=== PATIENT | female | born 1970 | race Caucasian/White ===

== ENCOUNTER 2018-11-03 09:21 | Inpatient (IN) | payer MEDICAID ==
[~2018-11-03] VITALS: Ht 152.4 cm; Wt 54.0 kg
--- NOTE | 2018-11-03 09:30 | NUR ---
CAME IN TO ER FOR SEVERE RUQ PAIN 'I WOKE UP IN PAIN AT 3AM" , TO ER BED 9, HOOKED TO MONITOR, CHANGED TO GOWN, PROVIDED W WARM BLANKET, AWAITING MD ANDERSON. DAUGHTER AT BEDSIDE
--- NOTE | 2018-11-03 09:50 | NUR ---
BLOOD DRAWN AND SENT TO LAB.
--- NOTE | 2018-11-03 09:53 | NUR ---
DR DUKE AT BEDSIDE, RECEIVED VERBAL ORDER OF MORPHINE 4MG IV, ZOFRAN 4MG IV AND 1L OF NS. CARRIED OUT
[2018-11-03] MEDS ORDERED: ONDANSETRON HCL/PF 4 MG/2 ML VIAL ONE (09:54)
[2018-11-03] MEDS ORDERED: MORPHINE SULFATE INJ 4 MG/ML DISP.SYRIN ONE ×2 (09:54→13:01)
[2018-11-03] MEDS ORDERED: IV NS 0.9% 1,000 ML BAG IV ONE (10:00)
[2018-11-03] MEDS ORDERED: MORPHINE SULFATE INJ 2 MG/ML DISP.SYRIN IV ONE ×2 (10:00→13:00)
[2018-11-03] MEDS ORDERED: ONDANSETRON HCL/PF 4 MG/2 ML VIAL IVP ONE (10:00)
[2018-11-03 10:02] LABS: BASOPHILS % (AUTO) 0.4 % (0.0-2.0); EOSINOPHILS % (AUTO) 0.3 % (0.0-6.0); HEMATOCRIT 39 % (33-45); HEMOGLOBIN 13.5 g/dL (11.5-14.8); LYMPHOCYTES # (AUTO) 0.5 /CMM (0.8-4.8); MEAN CORPUSCULAR HGB CONC 35 g/dl (31.0-36.0); MEAN CORPUSCULAR VOLUME 85 fL (82-100); MONOCYTES # (AUTO) 0.3 /CMM (0.1-1.30); MONOCYTES % (AUTO) 3.9 % (2.0-12.0); NEUTROPHILS # (AUTO) 7.4 /CMM (1.8-8.9); NEUTROPHILS % (AUTO) 89.4 % (43.0-81.0); PLATELET COUNT (AUTO) 206 /CMM (150-450); RED BLOOD CELL COUNT(AUTO) 4.54 MIL/uL (4.0-5.2); WHITE BLOOD COUNT (AUTO) 8.3 K/uL (4.3-11.0)
[2018-11-03 10:03] LABS: APPEARANCE,URINE Clear (CLEAR); BILIRUBIN,URINE Negative (NEGATIVE); BLOOD, URINE Negative Ery/uL (NEGATIVE); COLOR,URINE Yellow (YELLOW); KETONES,URINE Negative (NEGATIVE); LEUKOCYTE ESTERASE ,URINE Negative (NEGATIVE); NITRITE, URINE Negative (NEGATIVE); PROTEIN,URINE Negative (NEGATIVE); UGLUCOSE Negative (NEGATIVE); UROBILINOGEN,URINE 0.2 EU/dL (0.2)
--- NOTE | 2018-11-03 10:12 | NUR ---
US TECH AT BEDSIDE.
[2018-11-03 10:28] LABS: ALBUMIN 3.9 g/dL (3.4-5.0); BILIRUBIN,DIRECT 0.1 mg/dL (0.0-0.2); BILIRUBIN,TOTAL 0.3 mg/dL (0.2-1.0); CALCIUM, SERUM 8.9 mg/dL (8.5-10.1); CREATININE 0.6 mg/dL (0.6-1.3); POTASSIUM 3.8 mmol/L (3.5-5.1); TOTAL PROTEIN, SERUM 7.7 g/dL (6.4-8.2)
--- NOTE | 2018-11-03 10:48 | NUR ---
PT STILL IN SEVERE RUQ PAIN, MADE MD AWARE, RECEIVED VERBAL ORDER OF TORADOL 30MG IV. CARRIED OUT.
[2018-11-03] MEDS ORDERED: KETOROLAC TROMETHAMINE INJ 30 MG/ML VIAL ONE (10:51)
[2018-11-03] MEDS ORDERED: KETOROLAC TROMETHAMINE INJ 30 MG/ML VIAL IV ONE (11:00)
[2018-11-03] MEDS ORDERED: CEFOTETAN DISODIUM 1 G in IV D5W 50 ML IV SCH (12:00)
[2018-11-03] MEDS ORDERED: LOVA20TA2 PO (12:37)
--- NOTE | 2018-11-03 12:46 | NUR ---
MD MADE AWARE THAT CEFOTETAN IS NOT AVAILABLE FROM PHARMACY. RECEIVED VERBAL ORDER OF CEFTRIAXONE 1GM IV. CARRIED OUT ORDER.
[2018-11-03] MEDS ORDERED: CEFTRIAXONE 1GM BAG (ER ONLY) 50 ML IV ONE (12:47)
--- NOTE | 2018-11-03 12:50 | NUR ---
STARTED ROCEPHIN 1GM IVPB LAC 20G END TIME: 1320
--- NOTE | 2018-11-03 12:53 | NUR ---
CALLED [employer] GLOVE FINISHER WAS PAGED.
--- NOTE | 2018-11-03 13:11 | NUR ---
KATHYA GONZALES AT BEDSIDE
[2018-11-03] MEDS ORDERED: CEFTRIAXONE 1 G in IV D5W 50 ML IV ONE (13:30)
--- NOTE | 2018-11-03 13:31 | NUR ---
REPORT GIVEN TO MS OLIVER SARABIA OF MED-SURG UNIT
[2018-11-03 14:00] VITALS: BP 139/80
[2018-11-03] MEDS ORDERED: ONDANSETRON HCL/PF 4 MG/2 ML VIAL IVP PRN (14:00)
[2018-11-03] MEDS ORDERED: Z GUARD REMEDY 2 OZ OINT TP PRN (14:00)
[2018-11-03] MEDS ORDERED: MORPHINE SULFATE INJ 2 MG/ML DISP.SYRIN IV PRN (14:00)
[2018-11-03] MEDS ORDERED: MAG HYDROX/AL HYDROX/SIMETH 30 ML UDC PO PRN (14:00)
[2018-11-03] MEDS ORDERED: ACETAMINOPHEN 325 MG TABLET PO PRN (14:00)
[2018-11-03] MEDS ORDERED: DEXTROSE 50%-WATER 50 ML DISP.SYRIN IV PRN (14:00)
[2018-11-03] MEDS ORDERED: ZOLPIDEM TARTRATE 5 MG TABLET PO PRN (14:00)
[2018-11-03] MEDS ORDERED: MAGNESIUM HYDROXIDE 30 ML UDC PO PRN (14:00)
--- NOTE | 2018-11-03 14:00 | NUR ---
TRANSFERRED BY EMT TO MED SURG UNIT VIA [facility]
[2018-11-03 14:25] VITALS: BP 139/80
--- NOTE | 2018-11-03 14:25 | NUR ---
MS CRUISE STAFF MEMBER NOTES PATIENT ADMITTED FROM ER REPORT GIVEN BY GUILLERMO WITH STABLE VITAL SIGNS. NO ACUTE DISTRESS NOTED. BREATHING UNLABORED. NO SOB NOTED. IV ACCESS PATENT AND INTACT, NO REDNESS OR SWELLING NOTED. ORIENTED TO THE ROOM. SAFETY MEASURES IN PLACE. CALL LIGHT WITHIN REACH. WILL CONTINUE TO MONITOR ACCORDINGLY.
[2018-11-03] MEDS: IV D5/0.45 NACL 1,000 ML IV PRN (14:34)
[2018-11-03 16:00] VITALS: BP 126/77
[2018-11-03] MEDS: BLOOD SUGAR DIAGNOSTIC 1 EACH STRIP IN SCH ×2 (18:30→23:23)
--- NOTE | 2018-11-03 18:55 | NUR ---
MS RN NOTES PATIENT FOR HIDA BY ROSANGELA IN STABLE CONDITION, NO ACUTE DISTRESS NOTED.
--- NOTE | 2018-11-03 19:00 | NUR ---
MS RN NOTES PATIENT NOT BACK ON THE FLOOR AT THIS TIME. ENDORSED TO NIGHT NURSE FOR CONTINUITY OF CARE.
--- NOTE | 2018-11-03 19:15 | NUR ---
RN INITIAL NOTES: RECEIVED REPORT FROM CRISTINA SARABIA, PT OFF THE UNIT CURRENTLY KRISTINE ARANAD. MET WITH FAMILY AT BED SIDE.
[2018-11-03 20:00] VITALS: BP 135/76
--- NOTE | 2018-11-03 20:21 | NUR ---
RN NOTES: PT BACK ON THE UNIT, VS TAKEN AND RECORDED, CONNECTED BACK TO IVF ORDERED. PER ROSANGELA TO KEEP PT NPO, DO NOT GIVE ANY MORPHINE, HE WILL NURSING PROJECT COORDINATOR THE PT AT 2230 FOR ANOTHER SCAN.
--- NOTE | 2018-11-03 20:22 | NUR ---
RN NOTES: IV ACCESS PATENT AND FLUSHING WELL, SAFETY PRECAUTIONS FOR FALL INITIATED, CALL LIGHT IN REACH, WILL CONTINUE MONITORING PT
[2018-11-03 21:00] VITALS: BP 135/76
[2018-11-03 23:00] VITALS: BP 130/77
--- NOTE | 2018-11-03 23:09 | NUR ---
PRN MORPHINE: PT C/O RUQ AND RLQ PAIN 04/19, JUST GOT BACK TO THE UNIT FROM HIDA SCAN #2, PER ROSANGELA OKAY TO GIVE MORPHINE NOW AND CAN EAT PER ORDER, PER KATHYA DENTON TO BE ON CLEAR LIQUID DIET, PRN MORPHINE 4MG IVP ADMINISTERED AT THIS TIME, PLACED ON 2L OXYGEN VIA NC RESPIRATION EVEN AND UNLABORED, WILL CONTINUE TO MONITOR AND REASSESS PT
--- NOTE | 2018-11-03 23:27 | NUR ---
ACCU CHECK: BLOOD SUGAR TEST PERFORMED AND RESULT IS 130, NO INSULIN COVERAGE GIVEN PER SLIDING SCALE, PT ON CLEAR LIQUID DIET, STATED SHE'S HUNGRY, GIVEN ICE WATER AND JELL O, INSTRUCTED PT TO EAT SLOWLY, NOTIFY IF ANY N/V OCCURS.
--- NOTE | 2018-11-04 02:56 | NUR ---
RN NOTES: SEEN SLEEPING AT THIS TIME, APPEARS CALM AND COMFORTABLE
[2018-11-04] MEDS: IV D5/0.45 NACL 1,000 ML IV PRN ×2 (03:40→17:53)
[2018-11-04] MEDS: MORPHINE SULFATE INJ 4 MG/ML DISP.SYRIN IV PRN ×3 (03:40→21:58)
--- NOTE | 2018-11-04 03:41 | NUR ---
PRN MORPHINE: PT C/O 04/19 RIGHT UPPER AND LOWER ABDOMINAL PAIN REQUESTING PAIN MEDS, PRN MORPHINE 4MG IVP ADMINISTERED AT THIS TIME, WILL CONTINUE TO MONITOR AND REASSESS PT
--- NOTE | 2018-11-04 04:20 | NUR ---
RN NOTES: RECEIVED CALL FROM [facility] REGARDING RESULT OF HIA SCAN. RESULTS FOLLOWS: 1. Positive hepatobiliary scan. There is lack of filling of the gallbladder. Findings may represent acute cholecystitis in the appropriate clinical setting. 2. Patent common bile duct with normal visualization of the small bowel. FOUR CORNER STAYER MACHINE OPERATOR DEIDRE/FOUR CORNER STAYER MACHINE OPERATOR OF DR SALEEM MADE AWARE
[2018-11-04] MEDS: BLOOD SUGAR DIAGNOSTIC 1 EACH STRIP IN SCH ×4 (05:34→23:00)
--- NOTE | 2018-11-04 05:34 | NUR ---
BS 114: BS 114 NO INSULIN COVERAGE GIVEN PER SLIDING SCALE
--- NOTE | 2018-11-04 06:28 | NUR ---
RN CLOSING NOTES: PT IN BED, SLEEPING, AROUSES TO TACTILE STIMULI, ON 2L OXYGEN VIA NC, RESPIRATION EVEN AND UNLABORED, APPEARS CALM AND COMFORTABLE, NO FACIAL GRIMACE NOTED. IV ACCESS REMAINS PATENT AND FLUSHING WELL, INFUSING WITH D5 1/2 NS AT 75ML/HR. VS REMAINS STABLE, NEEDS ATTENDED, SURGEON NOTIFIED OF HIDA SCAN RESULT, SAFETY PRECAUTIONS FOR FALL REMAINS ENGAGED, CALL LIGHT IN REACH, WILL ENDORSE TO DAY RN FOR CONTINUITY OF CARE.
[2018-11-04 06:35] LABS: BASOPHILS % (AUTO) 0.3 % (0.0-2.0); EOSINOPHILS % (AUTO) 0.2 % (0.0-6.0); HEMATOCRIT 35 % (33-45); HEMOGLOBIN 12.3 g/dL (11.5-14.8); LYMPHOCYTES # (AUTO) 0.7 /CMM (0.8-4.8); MEAN CORPUSCULAR HGB CONC 35 g/dl (31.0-36.0); MEAN CORPUSCULAR VOLUME 85 fL (82-100); MONOCYTES # (AUTO) 0.7 /CMM (0.1-1.30); MONOCYTES % (AUTO) 9.1 % (2.0-12.0); NEUTROPHILS # (AUTO) 6.2 /CMM (1.8-8.9); NEUTROPHILS % (AUTO) 81.4 % (43.0-81.0); PLATELET COUNT (AUTO) 206 /CMM (150-450); RED BLOOD CELL COUNT(AUTO) 4.15 MIL/uL (4.0-5.2); WHITE BLOOD COUNT (AUTO) 7.7 K/uL (4.3-11.0)
[2018-11-04 06:58] LABS: ALBUMIN 3.1 g/dL (3.4-5.0); BILIRUBIN,TOTAL 0.6 mg/dL (0.2-1.0); CALCIUM, SERUM 7.9 mg/dL (8.5-10.1); CREATININE 0.6 mg/dL (0.6-1.3); MAGNESIUM 1.8 mg/dL (1.8-2.4); PHOSPHORUS 2.6 mg/dL (2.5-4.9); POTASSIUM 3.4 mmol/L (3.5-5.1); THYROID STIMULATING HORMONE 1.076 uIU/mL (0.358-3.74); TOTAL PROTEIN, SERUM 6.6 g/dL (6.4-8.2)
--- NOTE | 2018-11-04 07:01 | NUR ---
RN NOTES: RECEIVED ORDER FROM DEIDRE RASHEED, PER DIRECTOR OF HOME CARE HOSPICE "PLEASE HAVE THEM OBTAIN DELAYED DELAYED IMAGES UP TO 24HRS". CONTACTED [facility] [phone], RELAYED DOCTORS ORDER, PER EBEN HE'S GOING TO COME TO DO IMAGING.
--- NOTE | 2018-11-04 07:06 | NUR ---
MS RN NOTES PATIENT IN BED ALERT ORIENTED X 4. NO ACUTE DISTRESS NOTED. BREATHING UNLABORED. NO SOB NOTED. IV ACCESS PATENT AND INTACT, NO REDNESS OR SWELLING NOTED. SAFETY MEASURES IN PLACE. CALL LIGHT WITHIN REACH. WILL CONTINUE TO MONITOR ACCORDINGLY.
--- NOTE | 2018-11-04 07:06 | NUR ---
MS RN NOTES PATIENT IN BED ALERT ORIENTED X 4. NO ACUTE DISTRESS NOTED. BREATHING UNLABORED. NO SOB NOTED. IV ACCESS PATENT AND INTACT, NO REDNESS OR SWELLING NOTED. DUE MEDICATIONS GIVEN, NO ASE NOTED. NEEDS ATTENDED AND ANTICIPATED. KEPT CLEAN DRY AND COMFORTABLE. SAFETY MEASURES IN PLACE. CALL LIGHT WITHIN REACH. ENDORSED TO NIGHT NURSE FOR CONTINUITY OF CARE. Addendum: 11/04/18 at 1930 by CRISTINA RIDLEY RN DISREGARD ABOVE NOTED WRONG CHART
--- NOTE | 2018-11-04 07:12 | NUR ---
RN NOTES: PER SUPERVISOR SLASHING DEPARTMENT DEIDRE T/O BACK TO NPO, READ BACK AND VERIFIED
[2018-11-04 08:00] VITALS: BP 120/67
[2018-11-04] MEDS: PANTOPRAZOLE 40 MG VIAL IV SCH (09:19)
--- NOTE | 2018-11-04 09:30 | NUR ---
MS RN NOTES PATIENT TRANSPORTED FOR HIDA DELAYED IMAGING BY [facility] IN STABLE CONDITION.
[2018-11-04] MEDS: ATORVASTATIN 10 MG TABLET PO SCH (09:59)
--- NOTE | 2018-11-04 10:25 | NUR ---
MS RN NOTES SEEN AND EVALUATED BY REWORK MACHINE OPERATOR GEORGE GONZALES WITH ORDERS FOR DILAUDID 0.5MG IV Q6H PRN FOR BREAKTHROUGH PAIN, NOTED AND CARRIED OUT.
[2018-11-04] MEDS: POTASSIUM CL. PREMIX PERIPHER. 50 ML IV SCH ×2 (10:29→11:30)
[2018-11-04] MEDS ORDERED: HYDROMORPHONE INJ 0.5 MG/0.5 ML SYRINGE IV PRN (10:30)
--- NOTE | 2018-11-04 10:30 | NUR ---
MS RN NOTES PATIENT WAS [facility]SP[facility] IN STABLE CONDITION.
[2018-11-04] MEDS: CEFTRIAXONE 1 G in IV D5W 50 ML IV SCH (13:50)
--- NOTE | 2018-11-04 14:30 | NUR ---
MS RN NOTE HIDA SCAN RESULTED NOTIFIED LEONIE WAGGONER, NO NEW ORDERS MADE AT THIS TIME. CLARIFIED SURGERY SCHEDULE AND DIET ORDERS WITH ORDERS TO KEEP PATIENT CURRENT DIET NPO, NO SURGERY SCHEDULE YET AT THIS TIME.
--- NOTE | 2018-11-04 15:44 | NUR ---
MS RN NOTES RECEIVED NEW ORDERS FROM GEORGE MCKINNEY WITH ORDERS TO DISCONTINUE DILAUDID, NOTED AND CARRIED OUT.
[2018-11-04 16:00] VITALS: BP 102/58
--- NOTE | 2018-11-04 19:00 | NUR ---
MS RN NOTES PATIENT IN BED ALERT ORIENTED X 4. NO ACUTE DISTRESS NOTED. BREATHING UNLABORED. NO SOB NOTED. IV ACCESS PATENT AND INTACT, NO REDNESS OR SWELLING NOTED. DENIED ANY PAIN AT THIS TIME. DUE MEDICATIONS GIVEN, NO ASE NOTED. NEEDS ATTENDED AND ANTICIPATED. KEPT CLEAN DRY AND COMFORTABLE. SAFETY MEASURES IN PLACE. CALL LIGHT WITHIN REACH. ENDORSED TO NIGHT NURSE FOR CONTINUITY OF CARE.
--- NOTE | 2018-11-04 19:05 | NUR ---
RN INITIAL NOTES: Received report from Brian SARABIA. Pt sitting on a chair, family at bed side, pt on 2l oxygen via nc, respiration even and unlabored, remind pt she is npo, nothing to eat or drink, iv access patent and flushing well, infusing with ivf as ordered, no s/s of infiltration and swelling noted on access site. complaining she's hungry. pt kept npo per surgeon dr ramírez, will have surgery on Tuesday, pt aware. Safety precautions for fall initiated, call light in reach, will continue to monitor .
[2018-11-04 20:00] VITALS: BP 110/54
[2018-11-04 21:45] VITALS: BP 126/80
--- NOTE | 2018-11-04 21:59 | NUR ---
PRN MORPHINE: PT C/O 04/19 RIGHT UPPER AND LOWER QUADRANT PAIN, REQUESTING FOR PAIN MEDICATION, PRN MORPHINE 4MG IVP ADMINISTERED AT THIS TIME, WILL CONTINUE TO MONITOR AND REASSESS PT
--- NOTE | 2018-11-04 23:00 | NUR ---
BLOOD SUGAR 111: BS 111, NO INSULIN COVERAGE GIVEN PER SLIDING SCALE, ON D5 1/2 NS AT 75ML/HR, WILL MONITOR FOR S/S OF HYPOGLYCEMIA
--- NOTE | 2018-11-04 23:36 | NUR ---
RN NOTES: SEEN BY SURGEON DR SALEEM, INFORMED PT ABOUT SURGERY , GALLBLADDER REMOVAL, MAYBE TOMORROW IF NOT DEFINITELY TUESDAY, SURGEON EXPLAINED TO PT ABOUT SURGERY, POSSIBLE RISK RELATED TO SURGERY, PT AGREE TO THE PROCEDURE.
[2018-11-05 03:00] VITALS: BP 117/76
[2018-11-05] MEDS: MORPHINE SULFATE INJ 4 MG/ML DISP.SYRIN IV PRN (03:15)
--- NOTE | 2018-11-05 03:16 | NUR ---
PRN MORPHINE: PT C/O ABDOMINAL PAIN (RUQ, AND RLQ) WITH HEAD ACHE, 04/19 REQUESTING FOR MORPHINE, PRN MORPHINE 4MG IVP ADMINISTERED AT THIS TIME, WILL CONTINUE TO MONITOR AND REASSESS
[2018-11-05] MEDS: BLOOD SUGAR DIAGNOSTIC 1 EACH STRIP IN SCH ×4 (05:22→23:04)
[2018-11-05] MEDS: IV D5/0.45 NACL 1,000 ML IV PRN ×2 (05:22→22:38)
--- NOTE | 2018-11-05 06:55 | NUR ---
RN CLOSING NOTES: PT SLEEPING, APPEARS COMFORTABLE, NO FACIAL GRIMACE NOTED AT THIS TIME. IV ACCESS REMAINS PATENT AND FLUSHING WELL, INFUSING WITH D5 1/2 NS AT 75ML/HR. REMAINS NPO PER SURGEON. VS REMAINS STABLE,NEEDS ATTENDED, REMAINS ON OXYGEN. SAFETY PRECAUTIONS REMAINS ENGAGED, SIDE RAILS UP X2 FOR SAFETY. CALL LIGHT IN REACH, WILL ENDORSE TO DAY RN FOR CONTINUITY OF CARE.
--- NOTE | 2018-11-05 07:15 | NUR ---
MS RN NOTES PATIENT IN BED EYES CLOSED , EASY TO AROUSE, RESPOND TO VERBAL AND TACTILE STIMULI. NO ACUTE DISTRESS NOTED, BREATHING UNLABORED. NO SOB NOTED.NO FACIAL GRIMACING NOTED. IV ACCESS PATENT AND INTACT, NO REDNESS OR SWELLING NOTED. SAFETY MEASURES IN PLACE, CALL LIGHT WITHIN REACH. WILL CONTINUE TO MONITOR ACCORDINGLY.
[2018-11-05 07:30] LABS: BASOPHILS % (AUTO) 0.7 % (0.0-2.0); EOSINOPHILS % (AUTO) 2.1 % (0.0-6.0); HEMATOCRIT 33 % (33-45); HEMOGLOBIN 11.7 g/dL (11.5-14.8); LYMPHOCYTES # (AUTO) 0.7 /CMM (0.8-4.8); LYMPHOCYTES % (AUTO) 17.9 % (20.0-44.0); MEAN CORPUSCULAR HGB CONC 35 g/dl (31.0-36.0); MEAN CORPUSCULAR VOLUME 85 fL (82-100); MONOCYTES # (AUTO) 0.4 /CMM (0.1-1.30); MONOCYTES % (AUTO) 10.3 % (2.0-12.0); NEUTROPHILS # (AUTO) 2.7 /CMM (1.8-8.9); PLATELET COUNT (AUTO) 191 /CMM (150-450); RED BLOOD CELL COUNT(AUTO) 3.88 MIL/uL (4.0-5.2); WHITE BLOOD COUNT (AUTO) 3.9 K/uL (4.3-11.0)
[2018-11-05 08:00] VITALS: BP 94/49
[2018-11-05 08:37] LABS: CALCIUM, SERUM 8.2 mg/dL (8.5-10.1); CREATININE 0.5 mg/dL (0.6-1.3); POTASSIUM 3.7 mmol/L (3.5-5.1)
[2018-11-05] MEDS: ATORVASTATIN 10 MG TABLET PO SCH (09:00)
[2018-11-05] MEDS: PANTOPRAZOLE 40 MG VIAL IV SCH (09:03)
[2018-11-05] MEDS: MORPHINE SULFATE INJ 10 MG/ML DISP.SYRIN IV PRN ×3 (11:45→22:38)
[2018-11-05] MEDS: CEFTRIAXONE 1 G in IV D5W 50 ML IV SCH (13:34)
[2018-11-05 16:00] VITALS: BP 109/66
--- NOTE | 2018-11-05 19:00 | NUR ---
MS RN NOTES PATIENT IN BED ALERT ORIENTED X 4. NO ACUTE DISTRESS NOTED, BREATHING UNLABORED. NO SOB NOTED. IV ACCESS PATENT AND INTACT, NO REDNESS OR SWELLING NOTED.DUE MEDICATIONS GIVEN, NO ASE NOTED. KEPT CLEAN DRY AND COMFORTABLE. SAFETY MEASURES IN PLACE, CALL LIGHT WITHIN REACH. WILL ENDORSE TONIGHT NURSE FOR CONTINUITY OF CARE.
--- NOTE | 2018-11-05 19:05 | NUR ---
RN INITIAL NOTES: Received report from Susanna SARABIA. Pt in bed, met with family at bed side, pt on 2l oxygen via nc, respiration even and unlabored, on npo/nothing to eat or drink, iv access patent and flushing well, infusing with ivf as ordered, no s/s of infiltration and swelling noted on access site. will have surgery on Tuesday, pt aware. Had shower today. Safety precautions for fall initiated, call light in reach, will continue to monitor .
[2018-11-05 20:00] VITALS: BP 128/75
--- NOTE | 2018-11-05 22:39 | NUR ---
PRN MORPHINE: PT C/O 04/19 RIGHT UPPER AND LOWER QUADRANT PAIN REQUESTING FOR PAIN MEDICATION, PRN MORPHINE 5MG IVP ADMINISTERED TO THE PT AT THIS TIME, WILL CONTINUE TO MONITOR AND REASSESS PT
--- NOTE | 2018-11-05 23:00 | NUR ---
rn notes: pt giving full consent for gall bladder removal, consent for procedure, anesthesia and blood obtained.
--- NOTE | 2018-11-05 23:04 | NUR ---
ACCU CHECK 106: BLOOD SUGAR TEST PERFORMED RESULT OBTAINED IS 106, NO INSULIN GIVEBN PER SLIDING SCALE, PT ON D5 1/2 NS AT 75ML/HR
[2018-11-06] VITALS (10 sets, daily range): BP systolic 105–141; BP diastolic 61–80
[2018-11-06] MEDS: MORPHINE SULFATE INJ 10 MG/ML DISP.SYRIN IV PRN ×5 (03:43→23:44)
--- NOTE | 2018-11-06 04:30 | NUR ---
PRN MORPHINE: 0343AM PT C/O ABDOMINAL PAIN (RUQ, RLQ), 04/19 REQUESTING FOR MORPHINE, NOTED IV ACCESS SWOLLEN, REMOVED IV APPLIED PRESSURED DRESSING, REINSERTED IV ON RFA USING G 20, GOOD BLOOD RETURN NOTED, HOWEVER PT COMPLAINING THAT IT HURTS WHEN BEING FLUSH WITH SALINE. DECIDED TO REMOVED THE SAID ACCESS,RESTART NEW IV ACCESS ON LEFT WRIST USING G 22, GOOD BLOOD RETURN NOTED. THIS TIME, PT DENIES ANY BURNING SENSATION OR C/O STING WHEN BEING FLUSH WITH SALINE. 0430AM PRN MORPHINE 5MG IVP ADMINISTERED AT THIS TIME, WILL CONTINUE TO MONITOR AND REASSESS PT, CONNECTED BACK TO IVF ORDERED.
[2018-11-06] MEDS: BLOOD SUGAR DIAGNOSTIC 1 EACH STRIP IN SCH ×4 (05:46→23:40)
--- NOTE | 2018-11-06 05:47 | NUR ---
BLOOD SUGAR 104: BLOOD SUGAR RESULT 104, NO INSULIN COVERAGE GIVEN PER SLIDING SCALE.
[2018-11-06 06:32] LABS: BASOPHILS % (AUTO) 0.8 % (0.0-2.0); EOSINOPHILS % (AUTO) 2.6 % (0.0-6.0); HEMATOCRIT 33 % (33-45); HEMOGLOBIN 11.6 g/dL (11.5-14.8); LYMPHOCYTES # (AUTO) 0.6 /CMM (0.8-4.8); LYMPHOCYTES % (AUTO) 12.4 % (20.0-44.0); MEAN CORPUSCULAR HGB CONC 35 g/dl (31.0-36.0); MEAN CORPUSCULAR VOLUME 84 fL (82-100); MONOCYTES # (AUTO) 0.4 /CMM (0.1-1.30); MONOCYTES % (AUTO) 7.9 % (2.0-12.0); NEUTROPHILS # (AUTO) 3.5 /CMM (1.8-8.9); NEUTROPHILS % (AUTO) 76.3 % (43.0-81.0); PLATELET COUNT (AUTO) 215 /CMM (150-450); RED BLOOD CELL COUNT(AUTO) 3.89 MIL/uL (4.0-5.2); WHITE BLOOD COUNT (AUTO) 4.6 K/uL (4.3-11.0)
[2018-11-06 06:36] LABS: CALCIUM, SERUM 8.4 mg/dL (8.5-10.1); CREATININE 0.5 mg/dL (0.6-1.3); POTASSIUM 3.5 mmol/L (3.5-5.1)
--- NOTE | 2018-11-06 06:43 | NUR ---
RN CLOSING NOTES: PT SLEEPING, NO FACIAL GRIMACE NOTED AT THIS TIME. IV ACCESS REMAINS PATENT AND FLUSHING WELL, INFUSING WITH D5 1/2 NS AT 75ML/HR. REMAINS NPO FOR SURGERY, CONSENT FOR PROCEDURE, ANESTHESIA AND BLOOD SECURED. CHECKLIST COMPLETED. VS REMAINS STABLE,NEEDS ATTENDED, REMAINS ON OXYGEN. SAFETY PRECAUTIONS REMAINS ENGAGED, SIDE RAILS UP X2 FOR SAFETY. CALL LIGHT IN REACH, WILL ENDORSE TO DAY RN FOR CONTINUITY OF CARE.
--- NOTE | 2018-11-06 07:30 | NUR ---
MS/RN Patient received Patient received from bowling ball mold assembler. Pain scale currently 9/10, next medication due 0840, patient aware. IV fluids infusing at 75ml/hr, no signs of infiltration seen. NPO for possible surgery today with Dr Dow. Will continue to monitor and update patient as to surgery time.
[2018-11-06] MEDS: ATORVASTATIN 10 MG TABLET PO SCH (08:16)
[2018-11-06] MEDS: PANTOPRAZOLE 40 MG VIAL IV SCH (08:37)
--- NOTE | 2018-11-06 08:42 | NUR ---
MS/structural steel ironworker Complaining of abdominal pain 03/20. Morphine 5mg administered as ordered. Will monitor effectiveness.
--- NOTE | 2018-11-06 11:13 | NUR ---
MS/RN S/B Lenny OFFSET PRESS ASSISTANT Seen by OFFSET PRESS ASSISTANT - continue with current plan of care, await surgery schedule from Dr Dow.
--- NOTE | 2018-11-06 12:00 | NUR ---
MS/RN Blood sugar Blood sugar 107.
[2018-11-06] MEDS: CEFTRIAXONE 1 G in IV D5W 50 ML IV SCH (12:07)
[2018-11-06] MEDS: IV D5/0.45 NACL 1,000 ML IV PRN (12:07)
--- NOTE | 2018-11-06 12:35 | NUR ---
MS/phototypesetter operator schedule Per Dr Dow, surgery scheduled for 4p. Patient updated as to plan of care.
[2018-11-06] MEDS ORDERED: ANESTHESIA TRAY IN PYXIS 1 EA TRAY MC ONE (13:36)
--- NOTE | 2018-11-06 14:30 | NUR ---
MS/appliance service technician Patient taken to operating room, chart with patient.
[2018-11-06] MEDS ORDERED: LIDOCAINE 1%-EPI 1:100,000 20 ML VIAL ONE (14:49)
[2018-11-06] MEDS ORDERED: BUPIVACAINE 0.5 % PF 150 MG/30 ML VIAL ONE (14:49)
[2018-11-06] MEDS ORDERED: MIDAZOLAM HCL 2 MG/2ML VIAL ONE (15:02)
[2018-11-06] MEDS ORDERED: FENTANYL PF 250MCG/5ML AMPUL ONE (15:02)
[2018-11-06] MEDS ORDERED: FAMOTIDINE/PF INJ 20 MG/2 ML VIAL IV ONE (15:03)
[2018-11-06] MEDS ORDERED: ROCURONIUM BROMIDE 50 MG/5 ML ONE (15:03)
[2018-11-06] MEDS ORDERED: FENTANYL PF 100MCG/2ML AMPUL ONE (16:37)
--- NOTE | 2018-11-06 17:15 | NUR ---
MS/RN Back to room Patient back in room following laparoscopic cholecystectomy by Dr Dow. Lap sites X open to air with closure by dermabond. All pre op orders resumed including IVF and pain medication. Last pain medication administered in recovery room at 1640 (fentanyl 20mcg). Instructed to use incentive spirometer ten times every hour while awake, SCD stockings in place. Vital signs within normal range, no fever noted. Call light within reach, will continue to monitor and ensure safety.
--- NOTE | 2018-11-06 18:18 | NUR ---
MS/RN End note Patient remains in stable condition. Vital signs recorded as per hospital protocol for post surgery patients. Pain well controlled at this time, made aware that pain medication is available if needed. IV fluids infusing as ordered. Started with clear liquids, encouraged to go slowly to start. All needs attended, time allowed for all questions and concerns to be addressed. Will endorse to social media sr strategy manager.
--- NOTE | 2018-11-06 19:20 | NUR ---
MS RN OPENING NOTES: RECEIVED PT ON 2LPM VIA NC AND IS TOLERATING WELL. 2 FAMILY MEMBERS AT BEDSIDE. PT IS SITTING UP AND HAVING DINNER AT THIS TIME. NO SOB NOTED. NO S/S OF DISTRESS. INCENTIVE SPIROMETER AT BEDSIDE. INFORMED PT TO USE IT WHILE AWAKE AND PT UNDERSTOOD. PT HAS IV AND IS BEING INFUSED WITH IV D51/2NS AT 75ML/HR. BILATERAL SCD PUMPS IN PLACE. BED KEPT IN LOW, LOCKED POSITION, AND SIDE RAILS X 2UP. WILL CONTINUE TO MONITOR PT.
--- NOTE | 2018-11-06 19:50 | NUR ---
MS RN NOTES: PT COMPLAINING OF L AND R ABDOMEN PAIN 10/10. PT WAS ADMINISTERED MORPHINE 5MG IV. WILL CONTINUE TO MONITOR.
--- NOTE | 2018-11-06 23:45 | NUR ---
MS RN NOTES: PT COMPLAINING OF 10/10 ABDOMINAL PAIN. PT WAS ADMINISTERED MORPHINE 5MG IV. WILL CONTINUE TO MONITOR.
[2018-11-07] MEDS: INSULIN REGULAR, HUMAN 100 UNIT/ML 3 ML VIAL SQ PRN ×2 (00:04→05:15)
--- NOTE | 2018-11-07 00:05 | NUR ---
MS RN NOTES: BLOOD SUGAR WAS 175. UPON PREPARING THE INSULIN, PT SAID SHE IS NOT DIABETIC. HGA1C IS WITHIN RANGE. PT REFUSED INSULIN WELL. WILL CONTINUE TO MONITOR.
[2018-11-07 03:35] VITALS: BP 131/71
[2018-11-07] MEDS: MORPHINE SULFATE INJ 10 MG/ML DISP.SYRIN IV PRN ×2 (03:44→08:45)
--- NOTE | 2018-11-07 03:48 | NUR ---
MS RN NOTES: PT COMPLAINING OF 10/10 ABDOMINAL AND R SHOULDER PAIN. PT WAS ADMINISTERED MORPHINE 5MG IV. WILL CONTINUE TO MONITOR.
[2018-11-07] MEDS: BLOOD SUGAR DIAGNOSTIC 1 EACH STRIP IN SCH (05:15)
[2018-11-07 06:25] LABS: BASOPHILS % (AUTO) 0.2 % (0.0-2.0); HEMATOCRIT 35 % (33-45); HEMOGLOBIN 12.5 g/dL (11.5-14.8); LYMPHOCYTES # (AUTO) 0.4 /CMM (0.8-4.8); LYMPHOCYTES % (AUTO) 8.9 % (20.0-44.0); MEAN CORPUSCULAR HGB CONC 36 g/dl (31.0-36.0); MEAN CORPUSCULAR VOLUME 84 fL (82-100); MONOCYTES # (AUTO) 0.2 /CMM (0.1-1.30); MONOCYTES % (AUTO) 4.8 % (2.0-12.0); NEUTROPHILS # (AUTO) 3.4 /CMM (1.8-8.9); NEUTROPHILS % (AUTO) 86.1 % (43.0-81.0); PLATELET COUNT (AUTO) 247 /CMM (150-450); RED BLOOD CELL COUNT(AUTO) 4.16 MIL/uL (4.0-5.2)
--- NOTE | 2018-11-07 06:25 | NUR ---
MS RN CLOSING NOTES: ALL NEEDS WERE ATTENDED AND ANTICIPATED FOR. PT KEPT CLEAN, DRY, AND COMFORTABLE. PT REMAINS ON 2LPM VIA NC AND IS TOLERATING WELL. NO SOB NOTED. NO S/S OF DISTRESS. PT HAS BILATERAL SCD PUMPS IN PLACE. PT HAS IV AND IS BEING INFUSED WITH IV D5 1/2 NS AT 75ML/HR. BED KEPT IN LOW, LOCKED POSITION, AND SIDE RAILS X 2UP. PT HAS INCENTIVE SPIROMETER AT BEDSIDE. PT UNDERSTANDS TO USE IT WHEN AWAKE. WILL ENDORSE TO AM NURSE FOR FRANCOIS.
[2018-11-07 06:47] LABS: BILIRUBIN,TOTAL 0.4 mg/dL (0.2-1.0); CALCIUM, SERUM 8.8 mg/dL (8.5-10.1); CREATININE 0.6 mg/dL (0.6-1.3); POTASSIUM 3.9 mmol/L (3.5-5.1); TOTAL PROTEIN, SERUM 7.1 g/dL (6.4-8.2)
--- NOTE | 2018-11-07 07:20 | NUR ---
RN NOTES PATIENT A/OX4, AMBULATES INDEPENDENTLY, DENIES PAIN AT THIS TIME, TOLERATING CURRENT DIET PER ENDORSEMENT, NEEDS ATTENDED, CALL LIGHT WITHIN REACH, WILL CONTINUE TO MONITOR.
[2018-11-07 08:00] VITALS: BP 121/75
[2018-11-07] MEDS: ATORVASTATIN 10 MG TABLET PO SCH (08:21)
[2018-11-07] MEDS: PANTOPRAZOLE 40 MG VIAL IV SCH (08:21)
[2018-11-07] MEDS: IV D5/0.45 NACL 1,000 ML IV PRN (08:52)
[2018-11-07] MEDS ORDERED: IBUPROFEN 600 MG TABLET PO PRN (10:00)
--- NOTE | 2018-11-07 12:19 | NUR ---
RN NOTES CALLED DR. SALEEM AND ASKED IF PATIENT IS CLEARED FOR DISCHARGE, INFORMED DR. SALEEM OF LAB RESULT AND VITAL SIGNS. PER DR. SALEEM, PATIENT CAN GO, FOLLOW UP WITH SURGEON X2 WEEKS, AND NO HEAVY LIFTING X 2 WEEKS.
--- NOTE | 2018-11-07 12:56 | NUR ---
ALARM SIGNAL OPERATOR PATIENT A/OX4, NO DISTRESS NOTED, DENIES ABDOMINAL PAIN OR DISCOMFORT, NO BLEEDING ON SURGICAL SITES, SKIN CLEAR AND INTACT. AT BEDSIDE, ENCOURAGED PATIENT TO AMBULATE MORE AT HOME, DISCHARGE INSTRUCTIONS PROVIDED AND VERBALIZED UNDERSTANDING. INSTRUCTED TO FOLLOW UP WITH DR. SALEEM IN 2 WEEKS, PHONE NUMBER ATTACHED. RX PROVIDED FOR IBUPROFEN AND PO ANTIBIOTIC. PIV REMOVED, BELONGINGS RECONCILED AND COMPLETE. DC PAPERWORKS SIGNED. PATIENT LEFT THE FACILITY IN STABLE CONDITION.
== END 2018-11-07 13:00 | disposition home or self-care (01) | DRG 263 ==
LOC: ER 09:27 → MEDSG2 13:28
PROVIDERS: ADMIT Nurse Practitioner Acute Care; ATTEND Internal Medicine
PROC: 0FT44ZZ Resection of Gallbladder, Percutaneous Endoscopic Approach (ICD-10-PCS; principal; 2018-11-06)
DX: K80.00 Calculus of gallbladder with acute cholecystitis without obstruction (principal); E78.5 Hyperlipidemia, unspecified; E87.6 Hypokalemia; R73.9 Hyperglycemia, unspecified
CPT/HCPCS: 36415; 71045-TC; 76700-TC; 78226; 80048-TC; 80053-TC; 80061-TC; 80076-TC; 81000-TC; 82962-TC; 83690-TC; 83735-TC; 84100-TC; 84443-TC; 84703-TC; 85025-TC; 85610-TC; 86850-TC; 87081-TC; 88304-TC; 94799-TC; A9537; C9113; G0378; J0690; J0696; J1815; J1885; J2250; J2270; J2405; J2704; J2765; J3010; J3480; J3490; J7030; J7060

== ENCOUNTER 2019-02-27 16:42 | Emergency (ER) | payer MEDICAID ==
[~2019-02-27] VITALS: Ht 152.4 cm; Wt 48.5 kg
[~2019-02-27 16:42] MED LIST: LOVA20TA2 PO
[2019-02-27 16:49] VITALS: BP 116/70
[2019-02-27] MEDS ORDERED: AMOX/CLAVULANATE 875 MG TABLET PO ONE (17:00)
[2019-02-27] MEDS ORDERED: BACI/NEOM/POLY B OINT PKT 1 UDPKT PACKET TP ONE (17:00)
[2019-02-27] MEDS ORDERED: AMOX/CLAVULANATE 875 MG TABLET ONE (17:01)
[2019-02-27] MEDS ORDERED: BACI/NEOM/POLY B OINT PKT 1 UDPKT PACKET ONE (17:01)
[2019-02-27] MEDS ORDERED: IBUPROFEN 600 MG TABLET PO ONE ×2 (17:09→17:30)
== END 2019-02-27 17:18 | disposition home or self-care (01) ==
LOC: ER 16:45
DX: S91.351A Open bite, right foot, initial encounter (principal); E78.5 Hyperlipidemia, unspecified; Z90.49 Acquired absence of other specified parts of digestive tract; W54.0XXA Bitten by dog, initial encounter; Y93.89 Activity, other specified; Y92.89 Other specified places as the place of occurrence of the external cause; Y99.8 Other external cause status

== ENCOUNTER 2019-12-10 10:27 | Emergency (ER) | payer MEDICAID ==
[~2019-12-10] VITALS: Ht 152.4 cm; Wt 49.4 kg
[2019-12-10 10:34] VITALS: BP 120/75
--- NOTE | 2019-12-10 10:37 | NUR ---
DR TOVAR AT BEDSIDE FOR EVAL
--- NOTE | 2019-12-10 11:04 | NUR ---
Patient discharged to home in stable condition. Written and verbal after care instructions given. Patient verbalizes understanding of instruction.
[2019-12-10 11:14] LABS: CALCIUM, SERUM 8.7 mg/dL (8.5-10.1); CREATININE 0.7 mg/dL (0.6-1.3); POTASSIUM 4.1 mmol/L (3.5-5.1)
[2019-12-10 11:21] LABS: ALBUMIN 3.7 g/dL (3.4-5.0); BILIRUBIN,DIRECT 0.1 mg/dL (0.0-0.2); BILIRUBIN,TOTAL 0.5 mg/dL (0.2-1.0); TOTAL PROTEIN, SERUM 7.6 g/dL (6.4-8.2)
[2019-12-10 12:52] LABS: BASOPHILS # (AUTO) 0.1 /CMM (0.0-0.2); BASOPHILS % (AUTO) 2.3 % (0.0-2.0); EOSINOPHILS % (AUTO) 3.3 % (0.0-6.0); HEMATOCRIT 39 % (33-45); HEMOGLOBIN 13.4 g/dL (11.5-14.8); LYMPHOCYTES # (AUTO) 0.5 /CMM (0.8-4.8); LYMPHOCYTES % (AUTO) 23.5 % (20.0-44.0); MEAN CORPUSCULAR HGB CONC 34 g/dl (31.0-36.0); MEAN CORPUSCULAR VOLUME 85 fL (82-100); MONOCYTES # (AUTO) 0.2 /CMM (0.1-1.30); MONOCYTES % (AUTO) 9.6 % (2.0-12.0); NEUTROPHILS # (AUTO) 1.3 /CMM (1.8-8.9); NEUTROPHILS % (AUTO) 61.3 % (43.0-81.0); PLATELET COUNT (AUTO) 223 /CMM (150-450); RED BLOOD CELL COUNT(AUTO) 4.57 MIL/uL (4.0-5.2); WHITE BLOOD COUNT (AUTO) 2.2 K/uL (4.3-11.0)
[2019-12-11 15:06] LABS: *ANA ANTI-CENTROMERE B AB <0.2 AI (0.0-0.9); *ANA ANTI-DNA(DS) AB, QN 1 IU/mL (0-9); *ANA ANTI-JO-1 <0.2 AI (0.0-0.9); *ANA ANTICHROMATIN ANTIBODY <0.2 AI (0.0-0.9); *ANA RNP ANTIBODIES 0.5 AI (0.0-0.9); *ANA SJOGREN'S ANTI-SS-A >8.0 AI (0.0-0.9); *ANA SJOGREN'S ANTI-SS-B <0.2 AI (0.0-0.9); *ANAANTI-SCLERODERMA-70 AB <0.2 AI (0.0-0.9); *ANASMITH AB <0.2 AI (0.0-0.9)
== END 2019-12-10 11:04 | disposition home or self-care (01) ==
LOC: ER 10:31
DX: M19.90 Unspecified osteoarthritis, unspecified site (principal); E78.5 Hyperlipidemia, unspecified
CPT/HCPCS: 36415; 80048-TC; 80076-TC; 85025-TC; 85652-TC; 86140-TC; 86225; 86235; 86431-TC